=== PATIENT | male | born 1945 | race Caucasian/White ===

== ENCOUNTER 2018-04-23 17:28 | Emergency (ER) | payer MEDICARE, BC ==
[~2018-04-23] VITALS: Ht 177.8 cm; Wt 94.8 kg
[2018-04-23] MEDS ORDERED: IV NORMAL SALINE 1000 ML BAG IV ONE (17:30)
[2018-04-23] MEDS ORDERED: MORPHINE SULFATE 2 MG/1 ML DISP.SYRIN IV ONE (17:30)
[2018-04-23 17:51] LABS: BASOPHILS % (AUTO) 0.2 % (0.0-2.0); EOSINOPHILS % (AUTO) 0.5 % (0.0-7.0); HEMATOCRIT 37.4 % (36.7-47.1); HEMOGLOBIN 12.6 g/dL (12.5-16.3); LYMPHOCYTES # (AUTO) 0.3 K/uL (20.0-40.0); LYMPHOCYTES % (AUTO) 3.6 % (20.5-51.5); MEAN CORPUSCULAR HEMOGLOBIN 30.6 uug (23.8-33.4); MEAN CORPUSCULAR HGB CONC 34 g/dL (32.5-36.3); MEAN CORPUSCULAR VOLUME 90.7 fL (73.0-96.2); MONOCYTES # (AUTO) 0.2 K/uL (2.0-10.0); MONOCYTES % (AUTO) 2.1 % (0.0-11.0); NEUTROPHILS # (AUTO) 8.8 K/uL (1.8-8.9); NEUTROPHILS % (AUTO) 93.6 % (38.5-71.5); PLATELET COUNT (AUTO) 231 K/uL (152-348); RED BLOOD CELL COUNT(AUTO) 4.12 MIL/uL (4.06-5.63); WHITE BLOOD COUNT (AUTO) 9.4 K/uL (3.6-10.2)
--- NOTE | 2018-04-23 18:00 | NUR ---
PT'S PAINT [employer] T[employer]ER PROVIDED THE MED INFO.
[2018-04-23 18:02] LABS: CARBON DIOXIDE 29 mmol/L (21-32); CHLORIDE 99 mmol/L (98-107); GLUCOSE 118 mg/dL (74-106); POTASSIUM 3.4 mmol/L (3.5-5.1); UREA NITROGEN, BLOOD 19 mg/dL (7-18)
--- NOTE | 2018-04-23 18:03 | NUR ---
PT IS IN ROOM #1A. DR NIETO EVALUATED THE PT.
[2018-04-23 18:07] LABS: ALANINE AMINOTRANSFERASE 11 U/L (16-63); ALKALINE PHOSPHATASE 62 U/L (50-136); ASPARTATE AMINOTRANSFERASE 16 U/L (15-37); BILIRUBIN,DIRECT 0.1 mg/dL (0.0-0.2); BILIRUBIN,TOTAL 0.5 mg/dL (0.2-1.0); LIPASE 38 U/L (73-393); TOTAL PROTEIN, SERUM 7.4 g/dL (6.4-8.2)
[2018-04-23] MEDS ORDERED: LISI-603 PO (18:10)
[2018-04-23] MEDS ORDERED: PANT20TA2 PO (18:10)
[2018-04-23] MEDS ORDERED: SERT100T PO (18:10)
[2018-04-23] MEDS ORDERED: MIRT15TA7 PO (18:10)
[2018-04-23] MEDS ORDERED: PREG75CA PO (18:10)
[2018-04-23] MEDS ORDERED: TAMS-3 PO (18:10)
[2018-04-23] MEDS ORDERED: LAMO100T PO (18:10)
[2018-04-23] MEDS ORDERED: NIFE30TA91 PO (18:10)
[2018-04-23] MEDS ORDERED: ATOR40TA PO (18:10)
[2018-04-23 18:14] LABS: *BILIRUBIN,URIN NEGATIVE (NEGATIVE); *BLOOD, URINE 2+ (NEGATIVE); *COLOR,URINE DARK YELLOW (YELLOW); *KETONES,URINE NEGATIVE (NEGATIVE); LEUKOCYTE ESTERASE ,URINE NEGATIVE (NEGATIVE); NITRITE, URINE NEGATIVE (NEGATIVE); UGLUCOSE NEGATIVE (NEGATIVE)
[2018-04-23 18:21] LABS: *CLARITY,URINE SLIGHTLY HAZY (CLEAR)
[2018-04-23 18:22] LABS: MUCUS,URINE MODERATE /LPF (0-FEW); RBC,URINE 20-50 /HPF (0-3); WBC,URINE 0-3 /HPF (0-3)
[2018-04-23] MEDS ORDERED: MORPHINE SULFATE 2 MG/1 ML DISP.SYRIN ONE (18:27)
[2018-04-23] MEDS ORDERED: HYDROMORPHONE 1 MG/1 ML DISP.SYRIN IV ONE (18:30)
[2018-04-23] MEDS ORDERED: ONDANSETRON IV *ER 4 MG/2 ML VIAL IV ONE (18:30)
--- NOTE | 2018-04-23 18:34 | NUR ---
CODE SEPSIS WAS CANCELLED BY DR NIETO.
[2018-04-23] MEDS ORDERED: LEVOFLOXACIN 750 MG TABLET PO ONE (18:45)
[2018-04-23] MEDS ORDERED: HYDROMORPHONE 1 MG/1 ML DISP.SYRIN ONE (18:47)
[2018-04-23] MEDS ORDERED: ONDANSETRON 4 MG/2 ML VIAL ONE (18:48)
[2018-04-23] MEDS ORDERED: LEVOFLOXACIN 750 MG TABLET ONE (18:48)
[2018-04-23 19:02] VITALS: BP 143/78
--- NOTE | 2018-04-23 19:03 | NUR ---
PT WAS RE-EVALUATED BY DR NIETO. PT WAS D/C'd TO HOME. D/C INSTRUCTIONS GIVEN TO THE PT AND TO HIS RELATIVES.
== END 2018-04-23 19:04 | disposition home or self-care (01) ==
LOC: ER 17:31
DX: N39.0 Urinary tract infection, site not specified (principal); M79.652 Pain in left thigh; Z79.899 Other long term (current) drug therapy
CPT/HCPCS: 36415; 71045; 80048; 80076; 81001; 83690; 84484; 85025; 85730; 87086; 93005; 93971; 96374; 96375; 99284; J1170; J2270; J2405; 70030-TC; A4663; J7030